=== PATIENT | female | born 1955 | race African-American/Black ===

== ENCOUNTER 2018-12-10 12:51 | Emergency (ER) | payer MEDICAID, OTHER ==
[~2018-12-10] VITALS: Ht 165.1 cm; Wt 63.0 kg
[2018-12-10 13:10] VITALS: BP 121/75
== END 2018-12-10 14:35 | disposition home or self-care (01) ==
LOC: ER 12:51
DX: F10.129 Alcohol abuse with intoxication, unspecified (principal); I10 Essential (primary) hypertension; Y90.9 Presence of alcohol in blood, level not specified
CPT/HCPCS: 99283